=== PATIENT | female | born 1965 | race Two or more races ===

== ENCOUNTER 2017-04-14 12:15 | Outpatient (CLI) | payer OTHER | END 2017-04-14 12:24 | disposition home or self-care (01) | LOC: RAD 501 12:15 | DX: M54.5 Low back pain (principal); M54.2 Cervicalgia; I11.9 Hypertensive heart disease without heart failure; R00.2 Palpitations; E66.01 Morbid (severe) obesity due to excess calories; E03.4 Atrophy of thyroid (acquired); F41.1 Generalized anxiety disorder; G60.3 Idiopathic progressive neuropathy; M62.830 Muscle spasm of back; M51.06 Intervertebral disc disorders with myelopathy, lumbar region; M81.0 Age-related osteoporosis without current pathological fracture; M96.1 Postlaminectomy syndrome, not elsewhere classified; N64.59 Other signs and symptoms in breast ==

== ENCOUNTER 2019-10-01 11:35 | Outpatient (CLI) | payer OTHER | END 2019-10-01 11:38 | disposition home or self-care (01) | LOC: RAD 11:35 | DX: M25.511 Pain in right shoulder (principal); M25.512 Pain in left shoulder; M54.5 Low back pain; M46.1 Sacroiliitis, not elsewhere classified ==